=== PATIENT | male | born 1985 | race Caucasian/White ===

== ENCOUNTER 2016-12-25 02:39 | Emergency (ER) | payer OTHER ==
[2016-12-25 02:55] VITALS: BP 124/69; PULSE 90; RESP 20; TEMP 97.8; O2SAT 98
--- NOTE | 2016-12-25 03:10 | PD ---
HPI Chief Complaint: Alcohol/Drug Intoxication Time Seen by Provider: 02:44 Travel History International Travel<30 days: No Contact w/Intl Traveler<30days: No Traveled to known affect area: No History of Present Illness HPI 31-year-old white male presents to emergency department under Marchman act due to alcohol intoxication. The patient was brought in by PD after being given a trespass notice from his sister's house. He had just moved to the area 3 weeks ago from [place]. He missed to alcohol abuse. He denies any other drugs. He denies any diabetes or hypertension. No history of liver disease. No recent illness or trauma. PD felt the patient was too intoxicated to be released to the streets. [facility] Past Medical History Narrative Medical Alcoholism, pancreatitis Medical other: Yes (pancreatitis in the past) Past Surgical History Surgical History: No Previous Surgery Social History Alcohol Use: Yes Tobacco Use: Yes Substance Use: Yes (alcohol presently..cocaine approx 1yr ago) Allergies-Medications (Allergen,Severity, Reaction): Coded Allergies: No Known Drug Allergies (Verified Allergy, Unknown, 12/25/16) Reported Meds & Prescriptions Reported Meds & Active Scripts Active No Active Prescriptions or Reported Medications Review of Systems ROS Limitations: Intoxication Physical Exam Narrative GENERAL: Well-nourished, well-developed patient. Smells of EtOH and appears heavily intoxicated. SKIN: Warm and dry. No evidence of trauma HEAD: Normocephalic and atraumatic. EYES: No scleral icterus. No injection or drainage. ENT: No nasal drainage noted. Mucous membranes pink. Airway patent. NECK: Supple, trachea midline. Moves head freely without obvious discomfort. CARDIOVASCULAR: Regular rate and rhythm without murmurs, gallops, or rubs. RESPIRATORY: Breath sounds equal bilaterally. No accessory muscle use. GASTROINTESTINAL: Abdomen soft, non-tender, nondistended. EXTREMITIES: No cyanosis or edema. BACK: Nontender without obvious deformity. No CVA tenderness. NEURO: Patient is alert and oriented. no sensorimotor deficits. Nonfocal. Slurred speech. PSYCH: No delusions. No auditory or visual hallucinations. Data Data Last Documented VS Vital Signs Date Time Temp Pulse Resp B/P (MAP) Pulse Ox O2 Delivery O2 Flow Rate FiO2 12/25/16 02:55 97.8 90 20 124/69 (87) 98 MDM Medical Decision Making Medical Screen Exam Complete: Yes Emergency Medical Condition: Yes Medical Record Reviewed: Yes Differential Diagnosis Differential diagnoses: Alcohol intoxication, substance abuse, electrolyte abnormality, malingering Narrative Course The patient is intoxicated. He was just trespassed from his sister's home where he had been living. He is currently homeless. He has a history of alcohol abuse. The patient will be allowed to sleep it off here in the ER once the patient exhibits sobriety is Marchman act will be lifted. The patient has been advised to follow-up with Vicki Ng for detox. This is alcohol intoxication Diagnosis Primary Impression: Alcohol intoxication Qualified Codes: F10.920 - Alcohol use, unspecified with intoxication, uncomplicated Additional Impression: Alcoholism Patient Instructions: General Instructions Additional Instructions: Rest. Increase fluids. Avoid alcohol. Avoid illegal substances. Follow-up with Vicki Ng for detox. Do not operate a car or any heavy machinery under the influence of alcohol or drugs. Follow-up with a medical doctor this week. Return to the ER for emergencies Med/Other Pt SpecificInfo: No Meds Exist/No RX given Scripts No Active Prescriptions or Reported Meds Disposition: 01 DISCHARGE HOME Condition: Stable Kenji King Dec 25, 2016 03:09
== END 2016-12-25 06:20 | disposition home or self-care (01) ==
LOC: NEPD 02:39
DX: F10.920 Alcohol use, unspecified with intoxication, uncomplicated (principal); F10.20 Alcohol dependence, uncomplicated; Z59.0 Homelessness; Z72.0 Tobacco use; Z87.19 Personal history of other diseases of the digestive system
CPT/HCPCS: 99282

== ENCOUNTER 2017-01-09 13:41 | Emergency (ER) | payer SELFPAY ==
[~2017-01-09] VITALS: Ht 167.6 cm; Wt 70.0 kg
[2017-01-09 13:50] VITALS: BP 141/95; PULSE 84; RESP 18; TEMP 98.7; O2SAT 98
[2017-01-09 13:54] VITALS: BP 141/95; PULSE 85; RESP 18; TEMP 98.7; O2SAT 97
[2017-01-09] MEDS ORDERED: LIDOCAINE 1%/EPINEPHrine 1:100,000 SOLN 20 ML VIAL INFIL ONE (14:00)
[2017-01-09] MEDS ORDERED: LIDOCAINE HCL 1% 50 ML VIAL INFIL ONE (14:00)
[2017-01-09] MEDS ORDERED: ACETAMINOPHEN 325 MG TAB PO ONE (14:00)
[2017-01-09] MEDS ORDERED: TETANUS/DIPHTHERIA TOXOID ADULT 0.5 ML VIAL IM ONE (14:00)
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
--- NOTE | 2017-01-09 14:41 | RADRPT ---
EXAM DATE/TIME: 01/09/2017 14:02 [facility] COMPARISON: No previous studies available for comparison. INDICATIONS : Head pain due to fall. RADIATION DOSE: 56.35 CTDIvol (mGy) MEDICAL HISTORY : None SURGICAL HISTORY : None. ENCOUNTER: Initial ACUITY: 1 day PAIN SCALE: 7/10 LOCATION: Bilateral cranial TECHNIQUE: Multiple contiguous axial images were obtained of the head. Using automated exposure control and adj ustment of the mA and/or kV according to patient size, radiation dose was kept as low as reasonably a chievable to obtain optimal diagnostic quality images. DICOM format image data is available electro nically for review and comparison. FINDINGS: CEREBRUM: The ventricles are normal for age. No evidence of midline shift, mass lesion, hemorrhage or acute in farction. No extra-axial fluid collections are seen. POSTERIOR FOSSA: The cerebellum and brainstem are intact. The 4th ventricle is midline. The cerebellopontine angle i s unremarkable. EXTRACRANIAL: The visualized portion of the orbits is intact. SKULL: The calvaria is intact. No evidence of skull fracture. CONCLUSION: 1. No acute intracranial abnormality. Stone Sethi MD on January 09, 2017 at 14:37 Board Certified Radiologist. This report was verified electronically.
--- NOTE | 2017-01-09 15:05 | RADRPT ---
EXAM DATE/TIME: 01/09/2017 14:05 [facility] COMPARISON: No previous studies available for comparison. INDICATIONS : Neck pain due to fall. RADIATION DOSE: 33.38 CTDIvol (mGy) MEDICAL HISTORY : None SURGICAL HISTORY : None. ENCOUNTER: Initial ACUITY: 1 day PAIN SCALE: 8/10 LOCATION: Bilateral neck region. TECHNIQUE: Volumetric scanning of the cervical spine was performed. Multiplanar reconstructions in the sagittal, coronal and oblique axial planes were performed. Using automated exposure control and adjustment o f the mA and/or kV according to patient size, radiation dose was kept as low as reasonably achievable to obtain optimal diagnostic quality images. DICOM format image data is available electronically f or review and comparison. FINDINGS: VERTEBRAE: Normal vertebral body height. ALIGNMENT: No evidence of subluxation. C2-C3: The bony spinal canal is normal in size. No evidence of disc bulge or herniation. The neural forami na are bilaterally patent. C3-C4: The bony spinal canal is normal in size. No evidence of disc bulge or herniation. The neural forami na are bilaterally patent. C4-C5: The bony spinal canal is normal in size. No evidence of disc bulge or herniation. The neural forami na are bilaterally patent. C5-C6: The bony spinal canal is normal in size. No evidence of disc bulge or herniation. The neural forami na are bilaterally patent. C6-C7: The bony spinal canal is normal in size. No evidence of disc bulge or herniation. The neural forami na are bilaterally patent. C7-T1: The bony spinal canal is normal in size. No evidence of disc bulge or herniation. The neural forami na are bilaterally patent. CONCLUSION: Normal examination. Ari Bruce Jr., MD on January 09, 2017 at 15:01 Board Certified Radiologist. This report was verified electronically.
== END 2017-01-09 16:14 | disposition home or self-care (01) ==
LOC: NEPD 13:41
DX: S09.90XA Unspecified injury of head, initial encounter (principal); S01.81XA Laceration without foreign body of other part of head, initial encounter; S00.411A Abrasion of right ear, initial encounter; S40.211A Abrasion of right shoulder, initial encounter; Y93.55 Activity, bike riding; Z23 Encounter for immunization; Z72.0 Tobacco use
CPT/HCPCS: 12013; 70450; 72125; 90471; 90714

== ENCOUNTER 2017-05-15 22:34 | Emergency (ER) | payer OTHER ==
[~2017-05-15] VITALS: Ht 170.2 cm; Wt 75.0 kg
[2017-05-15 23:00] VITALS: BP 128/79; PULSE 75; RESP 16; TEMP 97.9; O2SAT 98
[2017-05-16] MEDS ORDERED: SODIUM CHLOR 0.9% 1000 ML INJ 1,000 ML IV ONE ×2 (02:30→03:45)
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
== END 2017-05-16 06:07 | disposition home or self-care (01) ==
LOC: NEPD 22:34
DX: F10.129 Alcohol abuse with intoxication, unspecified (principal); Z72.0 Tobacco use
CPT/HCPCS: 80307; 96360; 96361; 99284; J7030